=== PATIENT | male | born 1975 | race Caucasian/White ===

== ENCOUNTER 2020-03-27 21:56 | Emergency (ER) | payer MEDICAID ==
[2020-03-27] MEDS ORDERED: Bacitracin Oint 1 GM U/D Packet TOP ONE (22:22)
--- NOTE | 2020-03-27 22:24 | EDM.PDOC ---
ED HPI GENERAL MEDICAL PROBLEM - General Chief Complaint: Laceration Stated Complaint: bite by dog left forearm Time Seen by Provider: 03/27/20 22:20 Source of Information: Reports: Patient History Limitations: Reports: No Limitations - History of Present Illness INITIAL COMMENTS - FREE TEXT/NARRATIVE: 44-year-old male who is being treated for active leukemia was trying to break up a couple of dogs were fighting and accidentally got bit and lacerated on the extensor surface of his left forearm. He has a curved 3 cm flap laceration which occurred less than 1/2-hour ago. No other injury. Onset: Sudden Duration: Minutes: (About 30 minutes ago) Location: Reports: Upper Extremity, Left Associated Symptoms: Reports: No Other Symptoms Left Lower Arm Pain Score (Numeric/FACES): 4 - Related Data Allergies Allergy/AdvReac Type Severity Reaction Status Date / Time No Known Allergies Allergy Verified 03/27/20 22:21 Home Meds: Home Meds Imatinib [Gleevec] 1 tab PO BEDTIME 03/27/20 [History] ED ROS GENERAL - Review of Systems Review Of Systems: See Below Constitutional: Denies: Fever, Chills Respiratory: Denies: Shortness of Breath Cardiovascular: Denies: Chest Pain Neurological: Denies: Headache Free Text/Narrative/Comment: Being actively treated with chemotherapy for "leukemia". ED EXAM, SKIN/RASH Exam: See Below Exam Limited By: No Limitations General Appearance: Alert, No Apparent Distress Head: Atraumatic Respiratory/Chest: No Respiratory Distress Extremities: Other (Exam is otherwise limited to the left arm. On the extensor surface of the left forearm there is a curved 3 cm flap laceration into the subcutaneous tissue. No deep structures are involved and distal CMS is intact.) Course - Vital Signs Last Recorded V/S: Last Vital Signs Temp 97.6 F 03/27/20 22:28 Pulse 63 03/27/20 22:28 Resp 12 03/27/20 22:28 BP 128/84 03/27/20 22:28 Pulse Ox 96 03/27/20 22:28 - Orders/Labs/Meds Meds: Medications Discontinued Medications Generic Name Dose Route Start Last Admin Trade Name Freq PRN Reason Stop Dose Admin Bacitracin 1 dose 03/27/20 22:22 03/27/20 22:36 Bacitracin Oint 1 Gm TOP 03/27/20 22:23 1 dose ONETIME ONE Administration Lidocaine HCl 5 ml 03/27/20 22:22 03/27/20 22:35 Xylocaine-Mpf 1% INJECT 03/27/20 22:23 5 ml ONETIME ONE Administration - Re-Assessments/Exams Free Text/Narrative Re-Assessment/Exam: 03/27/20 22:51 Patient's laceration was anesthetized with 1% lidocaine, and thoroughly cleansed with sterile saline. The wound was closed with five 4-0 Ethilon sutures and topical bacitracin was applied. A mild pressure dressing was placed on the wo und that the patient should wear tomorrow, and the stitches can be removed in 1 week. He was placed on Augmentin 875 mg twice daily until the stitches come out. He can recheck sooner if concerns of infection or not healing satisfactorily. Departure - Departure Time of Disposition: 23:00 Disposition: Home, Self-Care 01 Clinical Impression: Laceration of left forearm Qualifiers: Encounter type: initial encounter Qualified Code(s): S51.812A - Laceration without foreign body of left forearm, initial encounter - Discharge Information Instructions: Laceration Care, Adult, [id number] Referrals: PCP,None [Primary Care Provider] - Forms: ED Department Discharge Care Plan Goals: Keep wound covered and clean while healing and take antibiotic twice daily until the stitches are removed. Stitches can be removed in 7 or 8 days, recheck sooner if concerns of infection or not healing satisfactorily. Sepsis Event Note (ED) - Focused Exam Vital Signs: Vital Signs Temp Pulse Resp BP Pulse Ox 03/27/20 22:28 97.6 F 63 12 128/84 96 03/27/20 22:15 97.6 F 63 12 128/84 96
== END 2020-03-27 23:00 | disposition home or self-care (01) ==
LOC: JP.ED 21:56
DX: S51.812A Laceration without foreign body of left forearm, initial encounter (principal); W54.0XXA Bitten by dog, initial encounter
CPT/HCPCS: 12002; 99283; J2001